=== PATIENT | female | born 1995 | race Caucasian/White ===

== ENCOUNTER → 2023-07-15 | Outpatient (CLI) | payer BC, OTHER | END | disposition home or self-care (01) | LOC: LAB SHORT 17:36 → LAB 17:36 | DX: Z34.93 Encounter for supervision of normal pregnancy, unspecified, third trimester (principal) | CPT/HCPCS: 87081; 87150 ==

== ENCOUNTER → 2023-07-22 | Outpatient (CLI) | payer BC, OTHER ==
[2023-07-23 11:30] LABS: Candida species (DNA Probe) Positive (NEGATIVE); G. vaginalis (DNA Probe) Positive (NEGATIVE); T. vaginalis (DNA Probe) Negative (NEGATIVE)
== END ==
LOC: LAB 14:49 → LAB SHORT 14:49
PROVIDERS: Family Medicine
DX: N89.8 Other specified noninflammatory disorders of vagina (principal)
CPT/HCPCS: 87480; 87510; 87660

== ENCOUNTER → 2023-07-29 | Outpatient (CLI) | payer BC, OTHER | END | disposition home or self-care (01) | LOC: LAB SHORT 16:30 → LAB 16:30 | DX: Z34.93 Encounter for supervision of normal pregnancy, unspecified, third trimester (principal) | CPT/HCPCS: 86900; 86901 ==

== ENCOUNTER 2023-08-16 21:46 | Inpatient (IN) | payer BC, OTHER ==
[~2023-08-16] VITALS: Ht 172.7 cm; Wt 78.0 kg
[2023-08-16 21:52] VITALS: BP 118/75
[2023-08-16 22:08] VITALS: BP 113/67
[2023-08-16] MEDS ORDERED: PRENATAL TABLE1 EAC2 (22:43)
[2023-08-16] MEDS ORDERED: MIRT30 PO (22:43)
[2023-08-16 22:47] LABS: BASOPHILS ABSOLUTE AUTO 0.02 K/mm3 (0.00-0.23); BASOPHILS PERCENT AUTO 0 % (0-2); EOSINOPHILS ABSOLUTE AUTO 0.21 K/mm3 (0.00-0.68); EOSINOPHILS PERCENT AUTO 1 % (0-6); Hematocrit 36.4 % (33.0-51.0); Hemoglobin 12.8 g/dL (11.5-16.0); IMMATURE GRAN ABSOLUTE AUTO 0.05 K/mm3 (0.00-0.10); IMMATURE GRAN PERCENT AUTO 0 % (0-1); LYMPHOCYTES ABSOLUTE AUTO 1.82 K/mm3 (0.84-5.20); LYMPHOCYTES PERCENT AUTO 12 % (21-46); MONOCYTES ABSOLUTE AUTO 0.99 K/mm3 (0.16-1.47); MONOCYTES PERCENT AUTO 7 % (4-13); Mean Corpuscular HGB 32.5 pg (26.0-34.0); Mean Corpuscular HGB Conc 35.2 g/dL (31.5-36.5); Mean Corpuscular Volume 92 fL (80-100); Mean Platelet Volume 11.7 fL (9.1-12.4); NEUTROPHILS ABSOLUTE AUTO 12.11 K/mm3 (1.96-9.15); NEUTROPHILS PERCENT AUTO 80 % (41-73); Platelet Count 127 K/mm3 (150-400); RDW Coefficient Variation 13.2 % (11.7-14.2); RDW Standard Deviation 44.5 fL (35.1-46.3); Red Blood Cell Count 3.94 M/mm3 (3.80-5.20)
[2023-08-17] VITALS (13 sets, daily range): BP systolic 98–127; BP diastolic 58–83
[2023-08-18 05:42] LABS: Hematocrit 35.6 % (33.0-51.0); Hemoglobin 12.4 g/dL (11.5-16.0); Mean Corpuscular HGB 32.7 pg (26.0-34.0); Mean Corpuscular HGB Conc 34.8 g/dL (31.5-36.5); Mean Corpuscular Volume 94 fL (80-100); Mean Platelet Volume 12.2 fL (9.1-12.4); Platelet Count 143 K/mm3 (150-400); RDW Coefficient Variation 13.3 % (11.7-14.2); RDW Standard Deviation 45.7 fL (35.1-46.3); Red Blood Cell Count 3.79 M/mm3 (3.80-5.20); White Blood Cell Count 12.05 K/mm3 (4.00-11.30)
[2023-08-18 06:16] VITALS: BP 120/70
[2023-08-18 07:19] VITALS: BP 99/66
[2023-08-18] MEDS ORDERED: IBUP800 PO (11:13)
[2023-08-18 11:41] VITALS: BP 115/74
[2023-08-18 14:47] LABS: Influenza A, PCR NEGATIVE (NEGATIVE); Influenza B, PCR NEGATIVE (NEGATIVE); Resp Syncytial Virus, PCR NEGATIVE (NEGATIVE)
[2023-08-18 14:48] LABS: SARS-Cov-2 (COVID-19) PCR, MMC POSITIVE (NEGATIVE)
[2023-08-18 15:12] VITALS: BP 114/77
[2023-08-18 19:09] VITALS: BP 121/82
== END 2023-08-18 15:24 | disposition home or self-care (01) | DRG 805 ==
LOC: OBS 21:46 → BC 21:47 → OBS 22:02 → BC 22:03
PROVIDERS: ADMIT Family Medicine
PROC: 10E0XZZ Delivery of Products of Conception, External Approach (ICD-10-PCS; principal; 2023-08-17)
PROC: 3E033VJ Introduction of Other Hormone into Peripheral Vein, Percutaneous Approach (ICD-10-PCS; 2023-08-17)
DX: O48.0 Post-term pregnancy (principal); U07.1 COVID-19; Z37.0 Single live birth; O98.52 Other viral diseases complicating childbirth; O99.344 Other mental disorders complicating childbirth; F32.A Depression, unspecified; Z3A.40 40 weeks gestation of pregnancy; Z67.40 Type O blood, Rh positive; Z87.891 Personal history of nicotine dependence; Z98.890 Other specified postprocedural states; Z79.899 Other long term (current) drug therapy; Z87.59 Personal history of other complications of pregnancy, childbirth and the puerperium
CPT/HCPCS: 0241U; 36415; 85025; 85027; 86850; 86900; 86901; A9270; J1885; J3010

== ENCOUNTER 2023-12-02 15:46 | Emergency (ER) | payer BC, OTHER ==
[~2023-12-02] VITALS: Ht 170.2 cm; Wt 54.4 kg
[~2023-12-02 15:46] MED LIST: IBUP800 PO; MIRT30 PO; PRENATAL TABLE1 EAC2
[2023-12-02 16:10] VITALS: BP 120/86
[2023-12-02] MEDS ORDERED: AMOCLA875 PO (16:15)
== END 2023-12-02 16:15 | disposition home or self-care (01) ==
LOC: ER 15:46
DX: J32.9 Chronic sinusitis, unspecified (principal); H92.03 Otalgia, bilateral
CPT/HCPCS: 99282

== ENCOUNTER → 2025-02-16 | Outpatient (CLI) | payer BC, OTHER ==
[~2025-02-16] MED LIST changes: +AMOCLA875 PO
[2025-03-09 21:40] LABS: OVA AND PARASITE,FECAL INTERP Negative (Negative)
== END ==
LOC: LAB 12:20 → LAB SHORT 12:20
PROVIDERS: Naturopath
DX: Z00.00 Encounter for general adult medical examination without abnormal findings (principal); R53.82 Chronic fatigue, unspecified; L70.9 Acne, unspecified; K52.9 Noninfective gastroenteritis and colitis, unspecified; M25.50 Pain in unspecified joint; N93.9 Abnormal uterine and vaginal bleeding, unspecified; K59.09 Other constipation; R63.4 Abnormal weight loss; Q79.60 Ehlers-Danlos syndrome, unspecified; K92.1 Melena; R10.13 Epigastric pain
CPT/HCPCS: 87177; 87209

== ENCOUNTER → 2025-02-23 | Outpatient (CLI) | payer BC, OTHER ==
[2025-03-09 21:40] LABS: OVA AND PARASITE,FECAL INTERP Negative (Negative)
== END ==
LOC: LAB SHORT 11:00 → LAB 11:00
PROVIDERS: Naturopath
DX: Z00.00 Encounter for general adult medical examination without abnormal findings (principal); R10.13 Epigastric pain; M25.50 Pain in unspecified joint; L70.9 Acne, unspecified; K52.9 Noninfective gastroenteritis and colitis, unspecified; N93.9 Abnormal uterine and vaginal bleeding, unspecified; K59.09 Other constipation; R63.4 Abnormal weight loss; Q79.60 Ehlers-Danlos syndrome, unspecified
CPT/HCPCS: 87177; 87209

== ENCOUNTER → 2025-03-01 | Outpatient (CLI) | payer BC, OTHER ==
[2025-03-05 17:41] LABS: CALPROTECTIN,FECAL 18 ug/g (<=49)
[2025-03-09 21:40] LABS: OVA AND PARASITE,FECAL INTERP Negative (Negative)
== END | disposition home or self-care (01) ==
LOC: LAB SHORT 11:44 → LAB 11:44 → LAB FUT 02-23 09:40
PROVIDERS: Naturopath
DX: Z00.00 Encounter for general adult medical examination without abnormal findings (principal); M25.50 Pain in unspecified joint; L70.9 Acne, unspecified; K52.9 Noninfective gastroenteritis and colitis, unspecified; N93.9 Abnormal uterine and vaginal bleeding, unspecified; K59.09 Other constipation; Q79.60 Ehlers-Danlos syndrome, unspecified; K92.1 Melena; R10.13 Epigastric pain; R63.4 Abnormal weight loss; R53.82 Chronic fatigue, unspecified
CPT/HCPCS: 83993; 87177; 87209

== ENCOUNTER 2025-06-14 12:26 | Emergency (ER) | payer BC, OTHER ==
[~2025-06-14] VITALS: Ht 172.7 cm; Wt 54.4 kg
[2025-06-14 13:19] VITALS: BP 112/81
[2025-06-14 13:49] LABS: Source, Urine Clean Catch
[2025-06-14 13:56] LABS: Bilirubin, Urine Neg (Neg); Color, Urine Yellow (P-Yellow); Glucose Qualitative, Urine Neg (Neg); Ketones, Urine Neg (Neg); Leukocyte Esterase, Urine Neg (Neg); Protein, Urine Neg (Neg); Specific Gravity, Urine 1.010 (1.003-1.022); Urobilinogen, Urine NORM (Normal)
[2025-06-14 14:16] LABS: White Blood Cells, Urine 0-2 /hpf (0-5)
[2025-06-14 14:17] LABS: Alanine Aminotransfer (ALT/SGP 26.0 U/L (12-78); Albumin, Blood 4.2 g/dL (3.4-5.0); Albumin/Globulin Ratio 1.1 (0.8-1.8); Anion Gap 3.0 mmol/L (3-11); Aspartate Aminotrans (AST/SGOT 12.0 U/L (12-37); Bilirubin, Total 0.8 mg/dL (0.1-1.0); Blood Urea Nitrogen 13.0 mg/dL (8-24); CO2, Blood 29.0 mmol/L (21-32); Calcium, Blood 9.2 mg/dL (8.5-10.1); Chloride, Blood 107.0 mmol/L (98-108); Creatinine, Blood 0.72 mg/dL (0.40-1.00); Globulin, Blood 3.8 g/dL (2.2-4.0); Glucose, Blood 91.0 mg/dL (70-99); Potassium, Blood 3.6 mmol/L (3.5-5.5); Sodium, Blood 135.0 mmol/L (136-145); Total Protein, Blood 8.0 g/dL (6.4-8.2)
[2025-06-14 14:17] LABS: Red Blood Cells, Urine Not Seen /hpf (0-2)
[2025-06-14 14:33] LABS: BASOPHILS ABSOLUTE AUTO 0.06 K/mm3 (0.00-0.23); BASOPHILS PERCENT AUTO 1 % (0-2); EOSINOPHILS ABSOLUTE AUTO 0.12 K/mm3 (0.00-0.68); EOSINOPHILS PERCENT AUTO 2 % (0-6); Hematocrit 44.7 % (33.0-51.0); Hemoglobin 15.0 g/dL (11.5-16.0); IMMATURE GRAN ABSOLUTE AUTO 0.02 K/mm3 (0.00-0.10); IMMATURE GRAN PERCENT AUTO 0 % (0-1); LYMPHOCYTES ABSOLUTE AUTO 2.25 K/mm3 (0.84-5.20); LYMPHOCYTES PERCENT AUTO 31 % (21-46); MONOCYTES ABSOLUTE AUTO 0.56 K/mm3 (0.16-1.47); MONOCYTES PERCENT AUTO 8 % (4-13); Mean Corpuscular HGB Conc 33.6 g/dL (31.5-36.5); Mean Corpuscular Volume 90 fL (80-100); NEUTROPHILS ABSOLUTE AUTO 4.18 K/mm3 (1.96-9.15); NEUTROPHILS PERCENT AUTO 58 % (41-73); NRBC ABSOLUTE 0.00 K/mm3 (0.00-0.02); NRBC Auto 0.0 /100 WBC (0.0-0.2); Platelet Count 232 K/mm3 (150-400); RDW Coefficient Variation 13.8 % (11.7-14.2); RDW Standard Deviation 45.4 fL (35.1-46.3)
== END 2025-06-14 15:25 | disposition home or self-care (01) ==
LOC: ER 12:26
PROVIDERS: Physician Assistant
DX: Z03.89 Encounter for observation for other suspected diseases and conditions ruled out (principal); Z87.440 Personal history of urinary (tract) infections
CPT/HCPCS: 80053; 81001; 82550; 84703; 85025; 99283